=== PATIENT | male | born 1945 | race Caucasian/White ===

== ENCOUNTER 2017-11-07 10:21 | Emergency (ER) | payer MEDICARE, OTHER ==
[2017-11-07] MEDS ORDERED: BABY ASPIRIN 81 MG CHEW PO ONE (10:40)
[2017-11-07] MEDS ORDERED: Nitrostat 0.4 MG (ED) SL ONE ×2 (10:40→10:51)
[2017-11-07] MEDS ORDERED: Sodium Chloride 0.9% 1000 ML 1,000 ML IV SCH (10:45)
[2017-11-07 10:46] LABS: Granulocyte Absolute (ANC) 7.08 (1.4-6.9); Hematocrit 33.4 % (42-50); Hemoglobin 11.1 gm/dl (12.5-18.0); Mean Cell Volume 90.8 fl (78-100); Mean Corpuscular Hgb Concent. 33.2 g/dl (32-36); Mean Platelet Volume 11.2 fl (6-9.5); Platelet Count 176 K/mm3 (150-450); Red Blood Count 3.68 M/mm3 (4.1-5.6); Red Cell Distribution Width 16.5 % (11.5-14.0)
[2017-11-07 10:47] LABS: Mean Corpuscular Hemoglobin 30.1 pg (26-32)
[2017-11-07] MEDS ORDERED: BABY ASPIRIN 81 MG CHEW ONE (10:51)
[2017-11-07] MEDS ORDERED: Sodium Chloride 0.9% 1000 ML 1,000 ML ONE (10:59)
[2017-11-07 11:06] LABS: INR 0.87 (0.8-3.0)
--- NOTE | 2017-11-07 11:08 | XRAY ---
Indication: Dyspnea. Comparison: April 24, 2017. Portable chest again demonstrates right mid and left lung base discoid atelectasis/scarring. Remaining heart and lungs normal. Bony thorax intact again with mild degenerative changes. Impression: Stable nonacute chest with chronic features.
[2017-11-07 11:12] LABS: ALBUMIN 4.1 g/dL (3.5-5.0); ANION GAP 20.9 MEQ/L (5-15); BILIRUBIN,TOTAL 0.3 mg/dL (0.2-1.3); Creatinine 1 1.28 mg/dL (0.66-1.25); Potassium 5.3 mmol/L (3.5-5.1); Total Protein 6.9 g/dL (6.3-8.2)
[2017-11-07 11:15] LABS: D-DIMER QUANTITATION 1002.29 ng/mL (215-500)
--- NOTE | 2017-11-07 11:22 | ERPHSYRPT ---
- History of Present Illness Time Seen by Provider: 11/07/17 10:35 Historian: patient Patient Subjective Stated Complaint: pt here for chest pain to for 2 weeks worse today, pain constant with some sob, no cough or fever, no n/v.pt is anxious and thinks he is going to today, resp labored at times Triage Nursing Assessment: pt alert, arrived per wc, chest clear, abd soft, no edema noted , pain to center of chest nonradiating Physician History: PATIENT WITH A HISTORY OF TYPE 2 DIABETES AND RENAL INSUFFICIENCY COMPLAINS OF SUBSTERNAL CHEST PAIN PRESSURE X 2 WEEKS, PAIN SCALE 7/10,, STATES PAIN RADIATES TO BACK. DENIES DYSPNEA, PALPITATIONS OR DIAPHOREIS PATIENT TOOK 2 BABY ASPIRIN AT HOME THIS MORNING. Timing/Duration: week(s) Activities at Onset: none Quality: pressure Location: substernal Chest Pain Radiation: back Severity of Pain-Max: moderate Severity of Pain-Current: moderate Modifying Factors: Improves With: nitroglycerin, oxygen Associated Symptoms: denies symptoms Prior Chest Pain/Cardiac Workup: no prior cardiac workup Nitro Today/Relief: 0.4 mg x 2 Aspirin Treatment Today: 81 mg x 2, provided at home, provided by ED (AND CHEWABLE ASPIRIN X 2 IN THE EMERGENCY) Allergies/Adverse Reactions: No Known Drug Allergies Allergy (Unverified 11/07/17 10:42) Home Medications: Diclofenac Sodium Gel [Voltaren GEL] 1 gm DAILY 11/07/17 [History] Furosemide [Furosemide] 20 mg DAILY 11/07/17 [History] Insulin NPH Human Recom [Novolin N] 25 unit BID 11/07/17 [History] Spironolactone [Spironolactone] 25 mg DAILY 11/07/17 [History] Hx Influenza Vaccination/Date Given: Yes Hx Pneumococcal Vaccination/Date Given: Yes Immunizations Up to Date: Yes - Past Medical History Pertinent Past Medical History: Yes Endocrine Medical History: Diabetes Type II History: Renal Disease Male Reproductive Disorders: Prostate Cancer - Past Surgical History Past Surgical History: Yes Gastrointestinal: Appendectomy, Cholecystectomy Musculoskeletal: Joint Replacement Male Surgical History: Prostate Surgery Other Surgical History: knee replaced - Social History Smoking Status: Former smoker Exposure to second hand smoke: No Drug Use: none Patient Lives Alone: No - Nursing Vital Signs Nursing Vital Signs: Initial Vital Signs Temperature 97.4 F 11/07/17 10:22 Pulse Rate 92 H 11/07/17 10:22 Respiratory Rate 18 11/07/17 10:22 Blood Pressure 174/90 11/07/17 10:22 O2 Sat by Pulse Oximetry 97 11/07/17 10:22 Pain Scale Pain Intensity 0 - Physical Exam SpO2: 97 Oxygen Delivery: Nasal Cannula - Course EKG Interpreted by Me: RATE, Sinus Rhythm, NORMAL AXIS (RATE 89) - Radiology Exams Chest X-ray Interpretation: Interpreted by me, Negative Ordered Tests: Active Orders 24 hr Category Date Time Status Pharmaceutical Development Technician STAT Care 11/07/17 10:40 Active EKG-ER Only STAT Care 11/07/17 10:40 Active IV Insertion STAT Care 11/07/17 10:40 Active Oxygen-ED Only NASAL CANNULA 2 lpm Care 11/07/17 10:40 Active CHEST 1 VIEW (PORTABLE) Stat Exams 11/07/17 10:40 Completed CHEST WITH CONTRAST [CT] Stat Exams 11/07/17 12:43 Ordered CBC W DIFF Stat Lab 11/07/17 10:45 Completed CMP Stat Lab 11/07/17 10:45 Completed D-DIMER QUANTITATION Stat Lab 11/07/17 10:45 Completed Manual Differential NC Stat Lab 11/07/17 10:45 Completed NT PRO BNP Stat Lab 11/07/17 10:45 Completed PROTIME WITH INR Stat Lab 11/07/17 10:45 Completed TROPONIN Q3H Lab 11/07/17 10:45 Completed TROPONIN Q3H Lab 11/07/17 12:52 Received UA W/RFX UR CULTURE Stat Lab 11/07/17 11:30 Ordered Medication Summary Generic Name Dose Route Start Last Admin Trade Name Freq PRN Reason Stop Dose Admin Sodium Chloride 1,000 mls @ 50 mls/hr 11/07/17 10:45 11/07/17 11:03 Sodium Chloride 0.9% 1000 Ml IV 12/07/17 10:44 50 mls/hr .Q20H YANET Administration Discontinued Medications Generic Name Dose Route Start Last Admin Trade Name Freq PRN Reason Stop Dose Admin Aspirin 162 mg 11/07/17 10:40 11/07/17 10:56 Baby Aspirin 81 Mg Chew PO 11/07/17 10:41 162 mg STAT ONE Administration Aspirin Confirm 11/07/17 10:51 Baby Aspirin 81 Mg Chew Administered 11/07/17 10:52 Dose 162 mg .ROUTE .STK-MED ONE Atorvastatin Calcium 80 mg 11/07/17 12:11 Lipitor 40mg PO 11/07/17 12:12 STAT STA Clopidogrel Bisulfate 150 mg 11/07/17 12:11 Plavix 75 Mg Tablet PO 11/07/17 12:12 STAT ONE Enoxaparin Sodium 100 mg 11/07/17 11:34 11/07/17 11:44 Enoxaparin Sodium 1 mg/kg (100 mg) 11/07/17 11:35 100 mg SQ Administration STAT ONE Enoxaparin Sodium Confirm 11/07/17 11:42 Enoxaparin Sodium Administered 11/07/17 11:43 Dose 120 mg SQ .STK-MED ONE Insulin Human Regular 6 unit 11/07/17 11:24 11/07/17 11:44 Novolin R IV 11/07/17 11:25 6 unit STAT ONE Administration Insulin Human Regular Confirm 11/07/17 11:42 Novolin R Administered 11/07/17 11:43 Dose 6 unit .ROUTE .STK-MED ONE Nitroglycerin 0.4 mg 11/07/17 10:40 11/07/17 10:56 Nitrostat 0.4 Mg (Ed) SL 11/07/17 10:41 0.4 mg STAT ONE Administration Nitroglycerin Confirm 11/07/17 10:51 Nitrostat 0.4 Mg (Ed) Administered 11/07/17 10:52 Dose 0.4 mg SL .STK-MED ONE Nitroglycerin 1 gm 11/07/17 11:30 11/07/17 11:45 Nitro-Bid 2% Ud Packets TOP 11/07/17 11:31 1 gm STAT ONE Administration Nitroglycerin Confirm 11/07/17 11:41 Nitro-Bid 2% Ud Packets Administered 11/07/17 11:42 Dose 1 gm .ROUTE .STK-MED ONE Lab/Rad Data: Laboratory Result Diagrams 11/07/17 10:45 11/07/17 10:45 Laboratory Results 11/07/17 11/07/17 11/07/17 Range/Units 12:52 10:45 10:45 WBC (4.0-10.5) K/mm3 RBC (4.1-5.6) M/mm3 Hgb (12.5-18.0) gm/dl Hct (42-50) % MCV (78-100) fl MCH (26-32) pg MCHC (32-36) g/dl RDW (11.5-14.0) % Plt Count (150-450) K/mm3 MPV (6-9.5) fl Absolute Granulocytes (1.4-6.9) Segmented Neutrophils (36.-66.) % Band Neutrophils (0.0-2.0) % Lymphocytes (Manual) (24-44) % Eosinophils (Manual) (0.00-3.0) % Platelet Estimate (NORMAL) RBC Morphology Poikilocytosis Anisocytosis PT 10.1 (8.83-12.87) SECONDS INR 0.87 (0.8-3.0) D-Dimer 1002.29 H* (215-500) ng/mL Sodium (137-145) mmol/L Potassium (3.5-5.1) mmol/L Chloride (98-107) mmol/L Carbon Dioxide (22-30) mmol/L Anion Gap (5-15) MEQ/L BUN (9-20) mg/dL Creatinine (0.66-1.25) mg/dL Estimated GFR ML/MIN Glucose (74-106) mg/dL Calcium (8.4-10.2) mg/dL Total Bilirubin (0.2-1.3) mg/dL AST (17-59) U/L ALT (0-50) U/L Alkaline Phosphatase (38-126) U/L Troponin I 1.260 H* 0.060 H* (0.000-0.034) ng/mL NT-Pro-B Natriuret Pep (0-900) pg/mL Serum Total Protein (6.3-8.2) g/dL Albumin (3.5-5.0) g/dL 11/07/17 11/07/17 Range/Units 10:45 10:45 WBC 8.0 (4.0-10.5) K/mm3 RBC 3.68 L (4.1-5.6) M/mm3 Hgb 11.1 L (12.5-18.0) gm/dl Hct 33.4 L (42-50) % MCV 90.8 (78-100) fl MCH 30.1 (26-32) pg MCHC 33.2 (32-36) g/dl RDW 16.5 H (11.5-14.0) % Plt Count 176 (150-450) K/mm3 MPV 11.2 H (6-9.5) fl Absolute Granulocytes 7.08 H (1.4-6.9) Segmented Neutrophils 87 H (36.-66.) % Band Neutrophils 1 (0.0-2.0) % Lymphocytes (Manual) 11 L (24-44) % Eosinophils (Manual) 1 (0.00-3.0) % Platelet Estimate NORMAL (NORMAL) RBC Morphology ABNORMAL Poikilocytosis RARE Anisocytosis 1+ PT (8.83-12.87) SECONDS INR (0.8-3.0) D-Dimer (215-500) ng/mL Sodium 133 L (137-145) mmol/L Potassium 5.3 H (3.5-5.1) mmol/L Chloride 99 (98-107) mmol/L Carbon Dioxide 18 L (22-30) mmol/L Anion Gap 20.9 H (5-15) MEQ/L BUN 48 H (9-20) mg/dL Creatinine 1.28 H (0.66-1.25) mg/dL Estimated GFR 58.7 ML/MIN Glucose 530 H* (74-106) mg/dL Calcium 10.0 (8.4-10.2) mg/dL Total Bilirubin 0.30 (0.2-1.3) mg/dL AST 24 (17-59) U/L ALT 30 (0-50) U/L Alkaline Phosphatase 150 H (38-126) U/L Troponin I (0.000-0.034) ng/mL NT-Pro-B Natriuret Pep 425 (0-900) pg/mL Serum Total Protein 6.9 (6.3-8.2) g/dL Albumin 4.1 (3.5-5.0) g/dL - Progress Progress: improved Progress Note: 11/07/17 11:26 ADMINISTERED ASPIRIN CHEWABLE 162MG, NITRO 0.4MG SL, PAIN IMPROVED TO PAIN SCALE 2/10, BLOOD GLUCOSE 530 GAVE INSULIN HUMULIN REGULAR 6 UNITS IV 11/07/17 11:39 ADMINISTERED LOVENOX 100MG SUBQ, FOR ELEVATED TROPONIN 0.063 AND DDIMER 1002 11/07/17 13:30, lipitoy 80mg and plavix 150mg given orally Discussed with Dr.: Other (DISCUSSED WITH DR CUEVAS [facility] AT [facility] ACCEPTS TRANSFER TO [facility] VIA [facility]) - Departure Time of Disposition: 13:45 Departure Disposition: Transfer Clinical Impression: UNSTABLE ANGINA, HYPERGLYCEMIA Condition: Stable Critical Care Time: No Referrals: KLAUDIA KILGORE [Primary Care Provider] -
[2017-11-07] MEDS ORDERED: NovoLIN R IV ONE (11:24)
[2017-11-07] MEDS ORDERED: NITRO-BID 2% UD PACKETS TOP ONE (11:30)
[2017-11-07] MEDS ORDERED: ENOXAPARIN SODIUM SQ ONE ×2 (11:34→11:42)
[2017-11-07] MEDS ORDERED: NITRO-BID 2% UD PACKETS ONE (11:41)
[2017-11-07] MEDS ORDERED: NovoLIN R ONE (11:42)
[2017-11-07 11:47] LABS: BAND 1 % (0.0-2.0); Eosinophil 1 % (0.00-3.0); Lymphocytes 11 % (24-44); Neutrophils 87 % (36.-66.); Total Cells Counted 100
[2017-11-07 11:48] LABS: ANISOCYTOSIS 1+; Platelet Estimate NORMAL (NORMAL); Poikilocytosis RARE
[2017-11-07] MEDS ORDERED: LIPITOR 40MG PO STA (12:11)
[2017-11-07] MEDS ORDERED: PLAVIX 75 MG Tablet PO ONE (12:11)
[2017-11-07 12:33] VITALS: PULSE 85
[2017-11-07] MEDS ORDERED: PLAVIX 75 MG Tablet ONE (13:41)
[2017-11-07] MEDS ORDERED: LIPITOR 40MG ONE (13:42)
[2017-11-07 13:46] VITALS: BP 129/79; O2SAT 98
== END 2017-11-07 14:01 | disposition short-term general hospital (02) ==
LOC: ED 10:21
DX: I20.0 Unstable angina (principal); E11.65 Type 2 diabetes mellitus with hyperglycemia; Z79.899 Other long term (current) drug therapy; Z79.4 Long term (current) use of insulin
CPT/HCPCS: 36415; 71045; 80053; 82962; 83880; 84484; 85025; 85379; 85610; 93005; 93041; 96360; 96361; 96372; 96374; 99285; J1650; A9270-GY